=== PATIENT | male | born 1935 | race Caucasian/White ===

== ENCOUNTER 2017-06-12 19:47 | Emergency (ER) | payer MEDICARE, OTHER ==
[2017-06-12 20:50] LABS: #Eosinphils 0.3 thou/uL (0.0-0.7); #Lymphocytes 1.5 thou/uL (1.20-3.40); #Monocytes 0.8 thou/uL (0.11-0.59); #Neutrophils 3.7 thou/uL (1.40-6.50); %Basophils 0.4 % (0.0-1.0); %Lymphocytes 23.5 % (21.0-51.0); %Monocytes 12.8 % (0.0-10.0); Hematocrit 48.5 % (42.0-52.0); Mean Platelet Volume 5.8 fL (7.4-10.4); White Blood Cell (WBC) Count 6.3 thou/uL (4.8-10.8)
[2017-06-12 21:16] LABS: Anion Gap 13 mmol/L (10-20); BUN (Urea Nitrogen) 16 mg/dL (8.4-25.7); Calc. Creatinine Clearance 0 mL/min (70-130); Calcium 9.5 mg/dL (7.8-10.44); Carbon Dioxide 25 mmol/L (23-31); Chloride 106 mmol/L (98-107); Estimated GFR-MDRD 66
--- NOTE | 2017-06-12 21:16 | RAD ---
PORTABLE AP CHEST: Date: 06-12-17 History: Chest pain. Severe reflux and GERD. Comparison: None. FINDINGS: Cardiac silhouette and pulmonary vasculature are within normal limits. There is question of hiatal h ernia in the region of the lower mediastinum. This is difficult to further evaluate without lateral projection. Lungs appear clear. There are degenerative changes seen in the spine. Vascular calcifica tions are seen in the thoracic aorta. IMPRESSION: 1. Question of hiatal hernia. Lateral projection may be helpful for further evaluation. 2. No acute cardiopulmonary process. POS: [facility]
[2017-06-12] MEDS ORDERED: Lorazepam 2 MG/ML VIAL ONE (21:25)
[2017-06-12] MEDS ORDERED: Fentanyl 100 MCG/2 ML VIAL ONE (23:03)
[2017-06-12] MEDS ORDERED: Propofol 200 MG/20 ML VIAL ONE (23:22)
[2017-06-12] MEDS ORDERED: Naloxone HCl 0.4 mg/ml Vial ONE (23:22)
[2017-06-12] MEDS ORDERED: Lidocaine 2% PF 10 ML AMP (For Epidural Use) ONE (23:22)
[2017-06-12] MEDS ORDERED: Ondansetron HCl/PF 4 MG/2 ML Vial ONE (23:22)
--- NOTE | 2017-06-13 05:56 | CON ---
DATE OF CONSULTATION: 06/12/2017 REFERRING PHYSICIAN: CONSTANCE Quintanilla M.D. REASON FOR CONSULTATION: Dysphagia, foreign body impaction of the esophagus. HISTORY OF PRESENT ILLNESS: Mr. Cj King is a 81-year-old male with history of esoph ageal stricture, chronic acid reflux. The patient has had an esophageal dilation done 5 years ago. Most recently he has gone to the [facility] in [place] and had an EGD and colonoscopy, both were to ld to be negative. The patient takes mostly antacid off and on for acid reflux. Apparently, he was eating some biscuit this evening and he felt the biscuit stuck to esophagus. He was unable to swal low saliva or drink water. He felt miserable and was constantly gagging and spitting up saliva. Th e patient had received IV Ativan 1 mg and subsequently he started feeling better and he is not spitt ing up any more saliva. At the time of the consultation, he appears very comfortable in no distress . He feels that the food bolus that had passed down already. The patient has no painful swallowing . No shortness of breath. Apparently as per the patient's family, he was when he was gagging or retching a lot. After he was given IV Ativan, he calmed down and appeared very comfortable. e patient has no other relevant history. ALLERGIES: None. SOCIAL HISTORY: The patient does not smoke or drink alcohol. MEDICAL ILLNESSES: None except for acid reflux and esophageal stricture, esophageal dilation. Ther e is no history of heart disease, lung disease, diabetes, stroke or any kind of medical problems. HOME MEDICATIONS: None. SURGERIES: Appendectomy more than 30-40 years ago. No other surgeries. FAMILY HISTORY: Unremarkable. REVIEW OF SYSTEMS: Unremarkable except for the dysphagia and acid reflux. PHYSICAL EXAMINATION: GENERAL: The patient appears very comfortable. He is awake, alert, and communicative. He is in no distress. He is not frothing at the mouth or spitting up any saliva. VITAL SIGNS: Afebrile, pulse is 76, blood pressure 130/72. HEENT: Conjunctivae clear. NECK: Supple. No adenitis or thyromegaly noted. CARDIOVASCULAR: First and second heart sounds normal. LUNGS: Clear to auscultation. ABDOMEN: Soft to palpate. No organomegaly. No tenderness. No masses. EXTREMITIES: Reveal no edema. CLINICAL IMPRESSION: A 81-year-old male with history of esophageal stricture from before. The patient has had esophageal dilation done 5 years ago. The patient presents with dysphagia and foreign body impaction. At the present time, he looks too comfortable and he is not frothing at th e mouth or spitting up saliva. It is possible that the foreign body could have passed down. PLAN: Emergent EGD and possible dilation. I did meet him in the ER and I explained to him about th e procedure in detail and also risks of the procedure including bleeding, perforation, aspiration, s epsis, etc. He fully understood the procedure and is agreeable. I will plan for EGD this evening.
--- NOTE | 2017-06-13 08:33 | OP ---
DATE OF SURGERY: 06/12/2017 OPERATIVE PROCEDURE: Esophagogastroduodenoscopy with disimpaction of the esophageal foreign body. PREOPERATIVE DIAGNOSIS: Dysphagia, meat impaction. POSTOPERATIVE DIAGNOSES: 1. Meat impaction in distal esophagus with a large amount of residual matter and the meat is very s oggy. 2. Tight esophageal stricture at the gastroesophageal junction. The esophagus was not dilated lissett use of the very friable, erythematous gastroesophageal junction because of meat impaction. PROCEDURE IN DETAIL: The patient was intubated and was given sedation by Anesthesia Department. A bite block was placed. A Pentax video gastroscope under direct vision was passed down to upper esop hageal sphincter into the esophagus. The patient was found to have fairly good amount of liquids an d also what appears to be residual matter with the meat impaction. The meat was very soggy. It was felt that it could not be removed with the forceps or the Tripod forceps. Tried to push the meat p iece down into the esophagus. Gentle, circumferential around the meat impaction area. I was able to disimpact part of it into the stomach. After the meat was pushed back into the stomach, I co uld see a very friable, erythematous GE junction with a tight stricture. It appears to be fibrotic. Subsequently water was irrigated to flush out what was left in the esophageal lumen. Two or three small pieces of residual matter was removed using the suction of the scope. The scope was advanced back into the stomach and most of the meat pieces gone down the stomach. What was left like residu al matter was irrigated and washed down into the stomach. The stomach itself shows retained food ma terial and also a large amount of water. The lower part of the stomach, no pathology seen. No esop hageal dilation was done because of the very friable GE junction stricture. DISCHARGE PLANNING: This is a 81-year-old male who came to the ER because of foreign body impaction. The patient has a history of esophageal stricture and has had the previous dilation don e in the past. The patient underwent an EGD with meat disimpaction and residual matter. The patien t is being discharged home. DISCHARGE INSTRUCTIONS: 1. The patient was advised to chew his food nicely and drinking a lot of water. 2. Prilosec 40 once a day. 3. To come back to the clinic in the next couple of days and we will plan for an outpatient EGD and dilation.
== END 2017-06-12 23:15 | disposition admitted as inpatient to this hospital (09) ==
LOC: ERS 19:47
DX: T18.120A Food in esophagus causing compression of trachea, initial encounter (principal); K21.9 Gastro-esophageal reflux disease without esophagitis; F32.9 Major depressive disorder, single episode, unspecified; Z79.899 Other long term (current) drug therapy
CPT/HCPCS: 71010; 80048; 85025; 96374; 99285; J1610; J2001; J2060; J2310; J2405; J2704; J3010